=== PATIENT | male | born 1970 | race Caucasian/White ===

== ENCOUNTER 2017-07-28 08:00 | Inpatient (IN) | payer MEDICAID ==
[2017-07-27 17:27] LABS: HEMATOCRIT 37.7 % (42.0-54.0); HEMOGLOBIN 12.9 g/dL (13.5-17.5); MCH 30.9 pg (26.0-34.0); MCHC 34.2 g/dL (31.0-37.0); MCV 90.4 fL (80.0-100.0); MEAN PLATELET VOLUME 9.5 fL (7.4-10.4); RBC 4.17 10x6/uL (4.20-6.10); RDW 12.8 % (11.5-14.5); WBC 7.1 10x3/uL (4.8-10.8)
[2017-07-27 17:32] LABS: CALC OSMOLALITY 281 mosm/kg (275-300); CALCIUM 8.9 mg/dL (8.5-10.1); CARBON DIOXIDE 27.1 mmol/L (21.0-32.0); CHLORIDE - SERUM 104 mmol/L (98-107); CREATININE - SERUM 0.8 mg/dL (0.6-1.3); GLUCOSE 125 mg/dL (74-106); POTASSIUM - SERUM 3.9 mmol/L (3.5-5.1); SODIUM 140 mmol/L (136-145); UREA NITROGEN 17 mg/dL (7-18); eGFR NON AFRICAN AMERICAN > 90 mL/min (90-120)
[2017-07-28] VITALS (10 sets, daily range): BP systolic 104–150; BP diastolic 42–89; Ht 167.6 cm; Wt 99.5 kg
[~2017-07-28] VITALS: Ht 167.6 cm; Wt 99.5 kg
[~2017-07-28 08:00] MED LIST: FLOMAX0.4 MG PO; GLUCOPHAGE500 MG PO; HYDROCODONE-APA1 TAB PO; LIPITOR20 MG PO; NEURONTIN 300300 MG PO; OXYCONTIN10 MG PO; PROSCAR5 MG PO; VENTOLIN HFA18 GM INH
--- NOTE | 2017-07-28 13:55 | NUR ---
RECIEVED FROM RECOVERY ROOM VIA BED STERI STRIPS TO RIGHT FRONT OF NECK AREA NOTED HEAD IN STABILIZING CUSHION PILLOW S/P CAGE PLACEMENT TO C2-3 AWAKE AND ALERT ORIENTED VSWNL B/P 129/72 HR 59 SPO2 97% ROOM AIR TOLERATING ICE CHIPS PIV TO LEFT WRIST CALL LIGHT IN REACH
--- NOTE | 2017-07-28 18:38 | NUR ---
PT RESTING WELL AT BEDSIDE. CALL LIGHT IN REACH PAIN TREATED PER ORDER
--- NOTE | 2017-07-28 20:50 | NUR ---
REC'D. CHGE. SHIFT RATES BACK PAIN 7 STATES BACK HURTS MORE THAN NECK.STERI-STRIPS INTACT TO RIGHT ANTERIOR NECK.WITH SOME DRY SEROUS BLOODY DRAINAGE OBSERVED.LOG CHAIN FEEDER EQUAL BILAT. DENIES ARM PAIN NUMBNESS OR TINGLING.DISCUSSED COLLAR WHEN GETTING UP FOR POST-OP SUPPORT TO NECK. STATES DR. CORTÉS SAID I CAN WEAR IT WHEN GETTING UP IF I CHOOSE TO.WILL CONTINUE TO MONITOR FOR ANY CHGES. IN NEURO STATUS AND FOLLOW CURRENT PLAN OF CAR
--- NOTE | 2017-07-29 02:30 | NUR ---
PT RESTING IN BED WITH NO DISTRESS. RESPIRATIONS EVEN AND UNLABORED. VISITOR AT BEDSIDE. SIDE RAILS X 2. BED LOW. CALL LIGHT IN REACH.
--- NOTE | 2017-07-29 08:40 | NUR ---
REC'D SITTING ON SIDE OF BED AWAKE AND ALERT. RESP EVEN AND UNLABORE WITH NO DISTRESS NOTED. CAN EXPRESS NEEDS AND WANTS. C/O NECK PAIN RATING 9/10 ON PAIN SCALE WAS MEDICATED WITH MORPHINE 2 MG PER ORDERS. ASSESSMENT COMPLETED. C/L IN REACH AT BEDSIDE.
[2017-07-29] MEDS ORDERED: OXYCODONE HCL10 MG PO (09:28)
[2017-07-29] MEDS ORDERED: HYDROCODONE-APA1 TAB PO (09:35)
[2017-07-29 09:36] VITALS: BP 107/59
--- NOTE | 2017-07-29 10:30 | NUR ---
PT WAS DISCHARGED THIS TIME IN STABLE CONDITION WITH NO C/O NOTED OR VOICED. DISCHARGE AND RX WAS GIVEN TO AND INSTRUCTION EXPLAINED TO PT AND HE VOICED UNDERSTANDING.
--- NOTE | 2017-08-05 09:58 | OP ---
PATIENT NAME: TRENT BAZZI MEDICAL RECORD: [id number] :68 LOCATION:[id number] ADMISSION DATE:07/28/17 SURGEON: KEYONNA CALERO MD DATE OF OPERATION: 07/28/2017 PREOPERATIVE DIAGNOSES: Osteophyte formation and disc protrusion at C3-C4 with spinal cord injury. POSTOPERATIVE DIAGNOSES: Osteophyte formation and disc protrusion at C3-C4 with spinal cord injury. PROCEDURE: Anterior cervical discectomy and fusion with removal of osteophytes at C3-4, PEEK interbody cages 7 mm x 6 degrees plate anterior cervical Uniplate in screws 16 mm x 2 mm. SURGEON: Keyonna Calero MD DESCRIPTION AND TECHNIQUE: After induction of general endotracheal anesthesia, the patient was positioned supine on the operating table. Neck was prepped and draped in usual sterile fashion. Fluoroscopic x-ray and [place] dissector localized at C3-C4 interspace. A midline skin incision was carried out from the midline to the sternocleidomastoid muscle. The platysma was divided with Bovie cautery. Using blunt and sharp dissection with Metzenbaum scissors, I proceeded in an avascular plane medial to the carotid sheath. The C3-C4 interspace was identified with fluoroscopic x-ray and a spinal needle. Longus colli muscles were elevated from bodies of C3 and C4. [place] distracting pins were placed at the bodies of C3 and C4. The disc space was incised with #11 blade. A combination of curettes and pituitary rongeurs were used to remove the disc material. Osteophytes were drilled away posteriorly under microscopic illumination. The posterior longitudinal ligament was removed with Cloward rongeurs. The dura was decompressed well. A PEEK interbody cage 7 mm x 6 degrees lordosis was placed in the interspace. Prior to this, it was filled with [employer]Cell allograft stem cells. A 14-mm Uniplate midline plate was used to span the C3-C4 interspace. The locking cams were tightened down over the screw heads. Good position of the hardware was confirmed on fluoroscopic x-ray. The platysma and subdermal layer were closed with interrupted 3-0 Vicryl suture. The skin was reapproximated with Steri-Strips and benzoin. A sterile dressing was applied to the wound. The patient was awakened in good condition and taken to recovery. All counts were reported as correct. TRANSINT:[id number] Voice Confirmation ID: [id number] DOCUMENT ID: [id number] KEYONNA CALERO MD at 0958 CC: [id number] DICTATION DATE: 08/04/172140 CORE BLOWER: 08/05/17 0145 DIS IN 07/29/17 [facility] [address] [id number]
--- NOTE | 2017-09-25 15:45 | DS ---
PATIENT:TRENT CURRAN :68 MEDICAL RECORD: [id number] DISCHARGE SUMMARY ADMISSION DATE: 07/28/17 DISCHARGE DATE: 07/29/17 HOSPITAL COURSE: Ms. Curran was admitted for anterior cervical diskectomy and fusion at C3-C4, tolerated the procedure well, and was discharged home on postop day #1. He is to follow up with Dr. Cortés in 2 weeks for lateral C-spine. DIET: Regular. DISCHARGE MEDICATIONS: Same as preoperative with addition of Jenners 10/325 1-2 every 4 hours as needed for pain. TRANSINT:[id number] Voice Confirmation ID: [id number] DOCUMENT ID: [id number] KEYONNA CORTÉS MD at 1545 CC: [id number] DICTATION DATE: 09/23/17 1124 CONTACT CENTER AGENT: 09/24/17 0104 DIS IN 07/29/17 [id number] [place] [address]
== END 2017-07-29 10:32 | disposition home or self-care (01) | DRG 473 ==
LOC: D.MS 08:00 → D.SDCHOLD 08:00 → D.MS 13:25
PROVIDERS: Anesthesiology; ADMIT Neurological Surgery
PROC: 0RB30ZZ Excision of Cervical Vertebral Disc, Open Approach (ICD-10-PCS; 2017-07-28)
PROC: 0RG10A0 Fusion of Cervical Vertebral Joint with Interbody Fusion Device, Anterior Approach, Anterior Column, Open Approach (ICD-10-PCS; principal; 2017-07-28 10:15)
DX: M50.11 Cervical disc disorder with radiculopathy, high cervical region (principal); M48.02 Spinal stenosis, cervical region; M25.78 Osteophyte, vertebrae